=== PATIENT | male | born 1995 | race Two or more races ===

== ENCOUNTER 2020-07-03 16:37 | Emergency (ER) | payer SELFPAY ==
[2020-07-03 16:44] VITALS: BP 155/86
[2020-07-03] MEDS ORDERED: KETOROLAC TROMETHAMINE 60 MG/2 ML SDV IM ONE (18:13)
[2020-07-03] MEDS ORDERED: DEXAMETHASONE SOD PHOS INJ 10 MG/1 ML VIAL IM ONE (18:14)
--- NOTE | 2020-07-03 19:35 | RADIOLOGY REPORT (SQ) ---
EXAM DESCRIPTION: L SPINE WHOLE IMAGES COMPLETED DATE/TIME: 07/03/2020 6:50 pm REASON FOR STUDY: low back pain right side tradiation COMPARISON: None. NUMBER OF VIEWS: Five views including obliques. TECHNIQUE: AP, lateral, oblique, and sacral radiographic images acquired of the lumbar spine. LIMITATIONS: None. FINDINGS: MINERALIZATION: Normal. SEGMENTATION: Normal. No transitional anatomy. ALIGNMENT: Normal. VERTEBRAE: Maintained height. No fracture or worrisome bone lesion. DISCS: Preserved height. No significant osteophytes or end plate irregularity. POSTERIOR ELEMENTS: Pedicles and facets are intact. No pars defect or posterior arch defects. HARDWARE: None in the spine. PARASPINAL SOFT TISSUES: Normal. PELVIS: Intact as visualized. No fractures or worrisome bone lesions. SI joints intact. OTHER: No other significant finding. IMPRESSION: NORMAL 5 VIEW LUMBAR SPINE. TECHNICAL DOCUMENTATION: JOB ID: [id number] 2010 [employer]- All Rights Reserved Reading location - IP/workstation name: [email or web address]
--- NOTE | 2020-07-03 20:18 | ER Document Report ---
ED Extremity Problem, Lower - General Chief Complaint: Leg Pain Stated Complaint: RIGHT LEG PAIN Time Seen by Provider: 07/03/20 18:03 Primary Care Provider: KARINA CARMEN MD [ACTIVE STAFF] - Follow up as needed Mode of Arrival: Ambulatory Information source: Patient Notes: Patient is a 25-year-old male comes emergency room with low back pain with radiation of discomfort down the right leg. Patient states is been going on for approximately a month. When he woke up this morning he had increasing pain and discomfort on the right buttocks and low back area. Patient denies any loss of urine or stool. He is ambulatory has no sign of foot drop. 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 He does do a lot of heavy lifting and moving. Patient denies any past medical history and currently takes no medications. He has taken Tylenol this morning for the pain that did not help. TRAVEL OUTSIDE OF THE [place] IN LAST 30 DAYS: No - HPI Patient complains to provider of: Pain. No: Injury Location: Back, Buttock Occurred: Yesterday Onset/Duration: Gradual, Worse Quality of pain: Achy, Cramping, Throbbing Severity: Moderate Pain Level: 3 Context: Other - Unknown Recent injury: Possibly Associated symptoms: denies: Unable to bear weight Exacerbated by: Movement, Walking Relieved by: Nothing - Related Data Allergies/Adverse Reactions: No Known Allergies Allergy (Verified 07/03/20 17:59) Past Medical History - General Information source: Patient - Social History Smoking Status: Never Smoker Chew tobacco use (# tins/day): No Frequency of alcohol use: None Drug Abuse: None Lives with: Family Family History: Reviewed & Not Pertinent Review of Systems - Review of Systems Constitutional: No symptoms reported EENT: No symptoms reported Cardiovascular: No symptoms reported Respiratory: No symptoms reported Gastrointestinal: No symptoms reported Genitourinary: No symptoms reported Male Genitourinary: No symptoms reported Musculoskeletal: See HPI, Back pain, Muscle pain Skin: No symptoms reported Hematologic/Lymphatic: No symptoms reported Neurological/Psychological: No symptoms reported -: Yes All other systems reviewed and negative Physical Exam - Vital signs Vitals: Temp Pulse Resp BP Pulse Ox 98.4 F 95 18 155/86 H 98 07/03/20 16:43 07/03/20 16:43 07/03/20 16:43 07/03/20 16:43 07/03/20 16:43 Interpretation: Hypertensive - Notes Notes: PHYSICAL EXAMINATION: GENERAL: Well-appearing, well-nourished and in no acute distress. HEAD: Atraumatic, normocephalic. EYES: Pupils equal round and reactive to light, extraocular movements intact, sclera anicteric, conjunctiva are normal. NECK: Normal range of motion, supple without lymphadenopathy LUNGS: Breath sounds clear to auscultation bilaterally and equal. No wheezes rales or rhonchi. HEART: Regular rate and rhythm without murmurs ABDOMEN: Soft, nontender, nondistended abdomen. No guarding, no rebound. No masses appreciated. Musculoskeletal: Examination patient her concern is his low back and right buttocks. Examination shows some mild tenderness to palpation around L4-L5. He also has some noted tenderness in the right buttocks at the sciatic notch area. Patient has good sensation from bilateral lower extremities to include from the inner ankles and feet to the groin as well as from the outer ankles and feet to the hips. No sign of saddle paresthesia. Patient ambulatory does not show any signs of foot drop. Straight leg raises are positive on the right side to about 20 degrees. DTRs are normal at this time. NEUROLOGICAL: . Normal speech, normal gait. Normal sensory, motor exams PSYCH: Normal mood, normal affect. SKIN: Warm, Dry, normal turgor, no rashes or lesions noted. Course - Re-evaluation Re-evalutation: Patient got relief with the Toradol and Decadron. X-rays were negative for any acute findings. Since this is been going on for an extended period of time I do not see any neuro deficits and feel that this is most likely a presentation of sciatica/herniated disc probably from his job and his lifting and carrying of heavy weight. I have given him the number of the orthopedist and placed him on muscle relaxers and some steroids and he has been informed to return to ER should he have any loss of urine or stool or have any sign of difficulty walking or loss of motion of the foot. 07/04/20 01:14 - Vital Signs Vital signs: Temp Pulse Resp BP Pulse Ox 98.4 F 95 18 155/86 H 98 07/03/20 16:43 07/03/20 16:43 07/03/20 16:43 07/03/20 16:43 07/03/20 16:43 - Laboratory Results Critical Laboratory Results Reviewed: No Critical Results - Radiology Results Critical Radiology Results Reviewed: No Critical Results Discharge - Discharge Clinical Impression: Sciatica Qualifiers: Laterality: right Qualified Code(s): M54.31 - Sciatica, right side Condition: Stable Disposition: HOME, SELF-CARE Instructions: Muscle Strain ([facility]), Sciatica ([facility]) Additional Instructions: Home and rest. Ice to the area hurts 3 times a day. Medication as prescribed. As we discussed if it continues on you will need to see an orthopedic doctor. 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 I would avoid lifting anything heavy for the next week. Should you have any loss of urine or stool or have difficulty lifting your foot or feet return to ER for reevaluation. Prescriptions: Methylprednisolone [Medrol Dosepack (4 mg/Tab) 21 Tab/Dosepak] 21 tab PO ASDIR PRN 6 Days #1 dspk PRN Reason: Methocarbamol [Robaxin 750 mg Tablet] 750 mg PO Q4 #40 tablet Forms: Elevated Blood Pressure, Return to Work Referrals: KARINA CARMEN MD [ACTIVE STAFF] - Follow up as needed
== END 2020-07-03 21:11 | disposition home or self-care (01) ==
LOC: ER 16:37
DX: M54.41 Lumbago with sciatica, right side (principal)
CPT/HCPCS: 99284; 96372; 72110; J1885; J1100